=== PATIENT | male | born 1985 | race Caucasian/White ===

== ENCOUNTER 2018-04-29 10:30 | Outpatient (CLI) | payer OTHER ==
--- NOTE | 2018-04-29 11:48 | RAD ---
TWO VIEWS LUMBAR SPINE: HISTORY: Evaluate for fracture. COMPARISON: None. FINDINGS: There is an indeterminate irregularity involving the anterior superior aspect of the L5 vertebral bod y. There is kyphosis centered at the thoracolumbar junction. Questionable mild loss of vertebral pop dy height at L2. IMPRESSION: 1. Possible irregularity involving the L2 level. 2. Irregularity involving the anterior superior aspect of L5. Injury to both of these levels is viviane pected. POS: ELISA
== END 2018-04-29 10:31 | disposition home or self-care (01) ==
LOC: TBSIIMAG 10:30
PROVIDERS: ATTEND Neurological Surgery
DX: M54.16 Radiculopathy, lumbar region (principal)
CPT/HCPCS: 72100

== ENCOUNTER 2018-05-15 15:34 | Outpatient (CLI) | payer OTHER ==
--- NOTE | 2018-05-15 19:09 | MRI ---
MRI OF THE LUMBAR SPINE 05/15/18 COMPARISON: None. HISTORY: Lumbar radiculopathy, prior back injury, bilateral lower extremity radicular symptoms. TECHNIQUE: Multiplanar and multisequence MR imaging of the lumbar spine is obtained without contrast. FINDINGS: Secondary to congenitally short pedicles, there is diffuse central canal stenosis involving the lumba r spine. This is exacerbated by epidural lipomatosis at the L5 and S1 levels. The sagittal STIR imaging demonstrates no focal area of osseous narrow edema. Assuming five lumbar ty pe vertebral bodies, the conus medullaris terminates at the L1-2 level. T12-L1: There is disc space narrowing and mild disc bulge. There is mild bilateral facet hypertrophy. No significant central canal or neural foraminal stenosis. L1-2: Mild disc space narrowing and minimal disc bulge. No significant central canal or neural forami nal stenosis. L2-3: Minimal disc bulge. Mild bilateral facet hypertrophy. No significant central canal or neural fo raminal stenosis. L3-4: Mild disc bulge with mild central canal stenosis. No significant neural foraminal stenosis. L4-5: There is partial disc desiccation and mild disc bulge with mild central canal stenosis, primari ly on the basis of congenitally short pedicles. Mild facet hypertrophy with no significant neural for aminal stenosis. L5-S1: There is mild disc space narrowing with disc bulge and disc desiccation. There is a central an nular tear with an associated central disc protrusion. There is associated moderate central canal shiva nosis. There is mild right neural foraminal stenosis. No significant left neural foraminal stenosis. The visualized retroperitoneal structures demonstrate no acute findings. IMPRESSION: Degenerative disc disease as detailed above, most significant finding being a central disc protrusio n with associated moderate central canal stenosis at L5-S1. POS: OFF
== END 2018-05-15 15:35 | disposition home or self-care (01) ==
LOC: TBSIIMAG 15:34
PROVIDERS: ATTEND Neurological Surgery
DX: M51.16 Intervertebral disc disorders with radiculopathy, lumbar region (principal); M48.07 Spinal stenosis, lumbosacral region; M51.27 Other intervertebral disc displacement, lumbosacral region
CPT/HCPCS: 72148

== ENCOUNTER 2022-02-17 22:21 | Emergency (ER) | payer OTHER | END 2022-02-17 23:08 | disposition left against medical advice (07) | LOC: ERS 22:21 | DX: Z53.21 Procedure and treatment not carried out due to patient leaving prior to being seen by health care provider (principal) ==